=== PATIENT | male | born 1995 | race African-American/Black ===

== ENCOUNTER 2019-08-30 00:49 | Emergency (ER) | payer OTHER ==
[~2019-08-30] VITALS: Ht 182.9 cm; Wt 101.0 kg
--- NOTE | 2019-08-30 01:06 | PHYS DOC ---
Past History Past Medical History: No Pertinent History Past Surgical History: No Surgical History Smoking: Cigarettes, Less than 1pk/day Alcohol Use: Rarely Drug Use: None General Adult EDM: Chief Complaint: Difficulty swallowing HPI: HPI: 24-year-old male presents with sudden onset of shortness of breath with sensation of being unable to swallow which occurred just prior to arrival. 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 Reports he had sensation he was unable to breathe. Reports was able to drink some water with interval resolution of symptoms. Reports has not had any further episodes. Denies prior history. Denies fever or chills. Denies cough. Denies itching or rash. Patient reports he ate spaghetti for dinner this evening and some garlic bread which he does not have any known food allergy for. Denies new medications, detergents, showed soaps, or shampoos. Denies history of asthma Review of Systems: Review of Systems: Constitutional: Denies fever or chills Eyes: Denies redness or eye pain HENT: Denies nasal congestion or sore throat Respiratory: Denies cough; reports shortness of breath Cardiovascular: Denies chest pain or palpitations GI: Denies abdominal pain, nausea, or vomiting : Denies dysuria or hematuria Musculoskeletal: Denies back pain or joint pain Integument: Denies rash or skin lesions Neurologic: Denies headache, focal weakness or sensory changes Complete systems were reviewed and found to be within normal limits, except as documented in this note. Physical Exam: PE: Constitutional: Well developed, well nourished, no acute distress, non-toxic appearance HENT: Normocephalic, atraumatic, oropharynx moist, tongue normal without swelling, no stridor Eyes: Conjunctiva normal, no discharge Neck: Normal range of motion, no tenderness, supple Cardiovascular: Heart rate normal, regular rhythm Lungs & Thorax: Bilateral breath sounds clear to auscultation, no wheezing/rales/rhonchi Skin: Warm, dry, no erythema, no rash Extremities: No tenderness, ROM intact, no edema Neurologic: Alert and oriented X 3, no focal deficits noted Psychologic: Affect anxious, judgment normal EKG: EKG: [] Radiology/Procedures: Radiology/Procedures: [] Course & Med Decision Making: Course & Med Decision Making Patient presents with history of present illness which is concerning for possible laryngospasm. Denies known trigger. Patient without signs of allergic reaction. Patient's oxygenation 97% on room air. Patient without stridor or respiratory distress upon physical exam. X-ray did not warranted at this time. Patient appears completely resolved. Patient stable for discharge with outpatient follow-up with PCP. Discussed findings and plan with patient, who acknowledges understanding and agreement. Jyotsna Disclaimer: Jyotsna Disclaimer: This electronic medical record was generated, in whole or in part, using a voice recognition dictation system. Departure Departure: Impression: Primary Impression: Laryngospasm Disposition: HOME, SELF-CARE Condition: STABLE Referrals: PCP,NO (PCP) Patient Instructions: Shortness of Breath, [id number] Additional Instructions: Stay hydrated. RUSTY TRAVIS DO Aug 30, 2019 01:06
[2019-08-30 01:08] VITALS: BP 126/95
== END 2019-08-30 01:16 | disposition home or self-care (01) ==
LOC: ER 00:49
DX: J38.5 Laryngeal spasm (principal); F17.210 Nicotine dependence, cigarettes, uncomplicated
CPT/HCPCS: 99281; 99283